=== PATIENT | male | born 1980 ===

== ENCOUNTER 2017-05-09 19:20 | Emergency (ER) | payer OTHER ==
[2017-05-09 19:29] VITALS: BP 148/74; RESP 16; TEMP 98; O2SAT 100
--- NOTE | 2017-05-09 19:38 | ED PDOC ---
HPI: Dental Pain/Injury Time Seen by Provider: 05/09/17 19:31 Chief Complaint (Nursing): Dental Pain Chief Complaint (Provider): jaw pain History Per: Patient History/Exam Limitations: no limitations Onset/Duration Of Symptoms: Hrs (x1) Current Symptoms Are (Timing): Better Additional Complaint(s): 36 year old male who presents to the emergency department with a complaint of lower jaw discomfort associated with lower back pain and chest discomfort ongoing 1 hour prior to arrival. Denied any numbness, tingling, shortness of breath, palpitations or taking pain medication for relief. Patient stated chest pain resolved upon arrival to ED and symptoms are better but jaw and back still "felt odd". PMD: none provided Past Medical History Reviewed: Historical Data, Nursing Documentation, Vital Signs Vital Signs: Last Vital Signs Temp 98.0 F 05/09/17 19:27 Pulse 79 05/09/17 19:27 Resp 16 05/09/17 19:27 BP 148/74 05/09/17 19:27 Pulse Ox 100 05/09/17 19:27 - Medical History PMH: No Chronic Diseases - Surgical History Surgical History: No Surg Hx - Family History Family History: States: Unknown Family Hx - Social History Current smoker - smoking cessation education provided: No Alcohol: None Drugs: Denies - Allergies Allergies/Adverse Reactions: Allergies Allergy/AdvReac Type Severity Reaction Status Date / Time No Known Allergies Allergy Verified 05/09/17 19:29 Review of Systems ROS Statement: Except As Marked, All Systems Reviewed And Found Negative ENT: Positive for: Mouth Pain (lower jaw discomfort) Cardiovascular: Positive for: Chest Pain (resolved) Musculoskeletal: Positive for: Back Pain Physical Exam - Reviewed Nursing Documentation Reviewed: Yes Vital Signs Reviewed: Yes - Physical Exam Appears: Positive for: Well, Non-toxic, No Acute Distress Head Exam: Positive for: ATRAUMATIC, NORMAL INSPECTION, NORMOCEPHALIC ENT: Positive for: Normal ENT Inspection Cardiovascular/Chest: Positive for: Regular Rate, Rhythm, Chest Non Tender Respiratory: Positive for: Normal Breath Sounds. Negative for: Decreased Breath Sounds, Respiratory Distress Back: Positive for: Normal Inspection. Negative for: L CVA Tenderness, R CVA Tenderness Neurologic/Psych: Positive for: Alert (x3), Oriented - ECG O2 Sat by Pulse Oximetry: 100 (RA) Pulse Ox Interpretation: Normal Medical Decision Making Medical Decision Making: Initial Impression: Jaw pain Initial Plan: * EKG: NSR at 67 bpm, no axis deviation or acute ST changes, as read by ED MD * Pt declined analgesics, reports feeling well on re-eval. "just wanted to make sure it was not a heart attack." Scribe Attestation: Documented by Juana Berry, acting as a scribe for Rachel Fuentes Provider Scribe Attestation: All medical record entries made by the Scribe were at my direction and personally dictated by me. I have reviewed the chart and agree that the record accurately reflects my personal performance of the history, physical exam, medical decision making, and the department course for this patient. I have also personally directed, reviewed, and agree with the discharge instructions and disposition. Disposition - Clinical Impression Clinical Impression: Jaw pain - Patient ED Disposition Is Patient to be Admitted: No - Disposition Disposition: Routine/Home Disposition Time: 21:20 Condition: STABLE Instructions: Temporomandibular Disorder (ED) Forms: [employer] (Portuguese) - POA Present On Arrival: None
[2017-05-09 21:03] VITALS: PULSE 67
--- NOTE | 2017-05-10 11:35 | CARD ---
APPROVED REPORT EKG Measurement Heart [id number] <Conclusion> Normal sinus rhythm with sinus arrhythmia Cannot rule out Anterior infarct, age undetermined Abnormal ECG
== END 2017-05-09 21:45 | disposition home or self-care (01) ==
LOC: H.ER 19:20
DX: R68.84 Jaw pain (principal); M54.5 Low back pain